=== PATIENT | male | born 1990 | race Caucasian/White ===

== ENCOUNTER 2018-09-06 12:21 | Emergency (ER) | payer BC, SELFPAY ==
[2018-09-06 12:23] VITALS: BP 152/88; PULSE 64; RESP 12; TEMP 36.9; O2SAT 99; BMI 33.7
--- NOTE | 2018-09-06 12:26 | NURSING ---
NO OLD EKG TO OBTAIN.
--- NOTE | 2018-09-06 12:58 | RAD_ITS ---
STUDY: X-RAY CHEST REASON FOR EXAM: Male, 27 years old. Chest pain TECHNIQUE: AP COMPARISON: None. FINDINGS: EKG leads project over the chest. Fusion hardware of the lower cervical spine partially visualized. The lungs are clear and expanded. There is no demonstrated pleural abnormality. Normal size heart. Normal mediastinum and kevin. Normal visualized pulmonary arteries. Normal visualized aortic arch and descending thoracic aorta. Normal visualized thoracic spine. Normal visualized ribs, clavicles, and shoulders. There is no demonstrated abnormality of the visualized soft tissue structures of the upper abdomen. RAD/Chest 1 View (Portable) IMPRESSION: Nonacute x-ray examination of the chest. Electronically Signed: Alexi Barreto MD at 13:21 EDT , Service support ,
--- NOTE | 2018-09-06 12:58 | EKG12_ITS ---
Test Reason : CP Blood Pressure : / mmHG Vent. Rate : 067 BPM Atrial Rate : 067 BPM P-R Int : 158 ms QRS Dur : 090 ms QT Int : 432 ms P-R-T Axes : 049 007 004 degrees QTc Int : 456 ms Normal sinus rhythm Minimal voltage criteria for LVH, may be normal variant Borderline ECG Confirmed by ANATOLIY HERNÁNDEZ, SAMMIE ([id number]), graphics editor SHAHEED MIX ([id number] on 09/08/2018 11:42:51 AM Referred By: LILIAN/GIULIANO Confirmed By:SAMMIE COPE MD
--- NOTE | 2018-09-06 13:02 | NURSING ---
NO OLD EKGS
[2018-09-06] MEDS: Aspirin 81 MG TAB.CHEW 324 MG PO (13:06)
[2018-09-06] MEDS: Mag Hydrox/Al Hydrox/Simeth 30 ML UDC PO (13:06)
[2018-09-06 13:08] LABS: Absolute Lymphocyte Count 2.89 X10^3/ul (0.83-4.51); Absolute Neutrophil Count 2.9 X10^3/uL (2.0-7.7); Basophil# 0.02 X10^3/uL; Basophil% 0.3 % (0-1); Eosinophil# 0.15 X10^3/uL; Eosinophils% 2.3 % (0-5); Hematocrit 38.5 % (40-54); Hemoglobin 13.2 g/dl (13.0-16.5); Lymphocyte # 2.89 X10^3/ul (4.0); Lymphocyte % 43.9 % (19-41); Mean Corp Hgb Conc 34.3 g/gl (32-36); Mean Corpuscular Hgb 28.6 pg (27.0-32.0); Mean Corpuscular Volume 83.3 fL (80-94); Mean Platelet Vol. 9.3 fl (6.2-12.0); Monocyte# 0.64 X10^3/uL; Monocyte% 9.7 % (0-10); Neutrophil # 2.88 X10^3/uL (2.7-7.7); Neutrophil % 43.8 % (47-70); POSITIVE COUNT NO; POSITIVE DIFFERENTIAL NO; POSITIVE MORPHOLOGY NO; Platelet Count 231 K/mm3 (150-450); RBC Distribution Width CV 12.8 % (11.6-14.6); RBC Distribution Width SD 38.6 fl (35.1-43.9); Red Blood Count 4.62 M/mm3 (4.6-6.2); White Blood Count 6.6 K/mm3 (4.4-11.0)
--- NOTE | 2018-09-06 13:10 | ED.DCSUM_ITS ---
- ER Visit Summary Date of Service: 09/06/18 Chief Complaint: Chest pain History of Present Illness: The patient is a 27 M presenting with chest pain. Patient states this started 2 to 3 hours ago and has been continuous. He has been having intermittent chest pain for the past week or so. He denies shortn ess of breath. Denies nausea or vomiting. He has history of cervical spinal stenosis. He had neck fusion x2. He denies neck pain. He states his last orthopedic surgeon felt that his chest wall pain was secondary to his cervical spinal stenosis. He recently moved to the area and does not have a physician. Denies PE/DVT risk factors. He is not a smoker. Physical Examination: Vitals are stable. Patient is afebrile. Alert no acute distress. HEENT exam is unremarkable. Neck is supple. Lungs are clear and equal bilaterally. Chest wall tenderness to palpation with no crepitus Heart is regular rate and rhythm. Abdomen is soft nontender nondistended. Extremities are unremarkable. Skin is warm and dry. No focal neurologic deficit. Remainder of exam is unremarkable. Emergency Department Course and Treatment: Patient was given aspirin on arrival. He was given a GI cocktail. EKG is sinus rate is 67 with no acute ischemic changes. CBC, chemistries unremarkable. Troponin is negative. D-dimer negative. Chest x-ray shows no acute process. He continues to have pain and was given Toradol IV. Repeat troponin is negative. On reevaluation, patient is resting comfortably. He is given Dr. Nunez risk consulting treasury director for no doc for follow-up. Advised return to ED if worsening complaints. Disposition: Discharge home Impression: Atypical chest pain This note was generated with [employer] dictation software. It may contain incorrect words, spelling, and punctuation that were not noted in review of the chart prior to signing ED Disposition - Plan for ED Patient: Instructions: ED Chest Pain Atypical Unkn Cause Referrals: Ritchie Nunez III, MD [STAFF PHYSICIAN] -
[2018-09-06 13:17] LABS: D-Dimer Quantitative (DVT/PE) < 0.27 FEU/ug/m (0.27-0.49)
[2018-09-06 13:18] LABS: Anion Gap 7 (5-15); BUN 13 mg/dL (7-18); BUN/Creat Ratio 14.6 RATIO (10-20); Calcium,Total 8.9 mg/dL (8.5-10.1); Chloride 105 mmol/L (98-107); Creatinine, Serum 0.89 mg/dL (0.70-1.30); EST Glomerular Filtration Rate 107 mL/min (>60); Est Glom Filt Rate - Afr Amer 130 mL/min (>60); Estimated Creatinine Clearance 146.37 ml/min; Glucose 91 mg/dL (74-106); Potassium 4.2 mmol/L (3.5-5.1); Sodium Level 143 mmol/L (136-145)
[2018-09-06 13:41] VITALS: BP 129/95; PULSE 69; RESP 11; O2SAT 94
[2018-09-06 14:24] VITALS: BP 127/90; PULSE 66; RESP 14; O2SAT 96
[2018-09-06] MEDS: Ketorolac 30 MG/ML Syringe IV (14:24)
[2018-09-06 15:02] VITALS: BP 129/91; PULSE 66; RESP 12; O2SAT 98
--- NOTE | 2018-09-06 16:15 | ED.DEP ---
ED Disposition - Plan for ED Patient: Instructions: ED Chest Pain Atypical Unkn Cause Referrals: Ritchie Nunez III, MD [STAFF PHYSICIAN] -
[2018-09-06 16:25] VITALS: BP 131/78; PULSE 76; RESP 16; O2SAT 98
== END 2018-09-06 16:26 | disposition home or self-care (01) ==
PROVIDERS: Emergency Provider Emergency Medicine
DX: R07.89 Other chest pain (principal)
CPT/HCPCS: 71045; 80048; 84484; 85025; 85379; 93005; 96374; 99285; A4216

== ENCOUNTER → 2018-11-05 09:11 | Outpatient (CLI) | payer SELFPAY | DX: Z52.3 Bone marrow donor (principal) | CPT/HCPCS: 36415 ==

== ENCOUNTER 2020-06-11 13:17 | Observation (INO) | payer OTHER, SELFPAY ==
[2020-06-11] VITALS (13 sets, daily range): BP systolic 115–186; BP diastolic 74–96; PULSE 50–111; RESP 12–20; TEMP 36.6–37.1; O2SAT 94–100; BMI 26.4; BMI 33.0; BMI 33.1
--- NOTE | 2020-06-11 13:36 | RAD_ITS ---
STUDY: X-RAY CHEST REASON FOR EXAM: Male, 29 years old. Increased heart rate, chest pain today TECHNIQUE: Single AP portable view of the chest. COMPARISON: None. FINDINGS: There are monitoring devices. The lungs are clear and expanded. There is no demonstrated pleural abnormality. Normal size heart. Normal mediastinum and kevin. Normal visualized pulmonary arteries. Normal visualized aortic arch and descending thoracic aorta. Normal visualized thoracic spine. There is postoperative change of the cervical spine. Normal visualized ribs, clavicles, and shoulders. There is no demonstrated abnormality of the visualized soft tissue structures of the upper abdomen. RAD/Chest 1 View (Portable) IMPRESSION: Normal x-ray examination of the chest. Electronically Signed: Joe Polanco MD at 14:16 EST , Service support ,
--- NOTE | 2020-06-11 13:36 | EKG12_ITS ---
Test Reason : CP Blood Pressure : / mmHG Vent. Rate : 107 BPM Atrial Rate : 107 BPM P-R Int : 214 ms QRS Dur : 098 ms QT Int : 328 ms P-R-T Axes : 057 008 008 degrees QTc Int : 437 ms Sinus tachycardia with 1st degree A-V block Left ventricular hypertrophy with repolarization abnormality Abnormal ECG Confirmed by ANATOLIY HERNÁNDEZ, SAMMIE ([id number]), city editor SUSY MITCHELL ([id number]) on 06/14/2020 12:20:49 PM Referred By: AARON Confirmed By:SAMMIE COPE MD
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
[2020-06-11 13:43] LABS: Absolute Lymphocyte Count 3.74 X10^3/uL (0.83-4.51); Basophil# 0.03 X10^3/uL; Basophil% 0.3 % (0-1); Eosinophils% 3.1 % (0-5); Hematocrit 41.5 % (40-54); Lymphocyte # 3.74 X10^3/ul (4.0); Lymphocyte % 38.3 % (19-41); Mean Corp Hgb Conc 33.7 g/dL (32-36); Mean Corpuscular Hgb 28.1 pg (27.0-32.0); Mean Corpuscular Volume 83.3 fL (80-94); Mean Platelet Vol. 9.1 fl (6.2-12.0); Monocyte# 0.64 X10^3/uL; Monocyte% 6.6 % (0-10); NRBC Flagged by Analyzer 0 % (0-5); Neutrophil # 5.03 X10^3/uL (2.7-7.7); Neutrophil % 51.4 % (47-70); Platelet Count 287 K/mm3 (150-450); RBC Distribution Width CV 12.7 % (11.6-14.6); RBC Distribution Width SD 38.3 fl (35.1-43.9); Red Blood Count 4.98 M/mm3 (4.6-6.2); White Blood Count 9.8 K/mm3 (4.4-11.0)
[2020-06-11] MEDS: 0.9% Normal Saline 1,000 ML 150 ML IV (13:50)
[2020-06-11] MEDS: Aspirin 81 MG TAB.CHEW 324 MG PO (13:52)
[2020-06-11 13:56] LABS: Anion Gap 9 (5-15); BUN 11 mg/dL (7-18); BUN/Creat Ratio 10.5 RATIO (10-20); Chloride 102 mmol/L (98-107); Creatinine, Serum 1.05 mg/dL (0.70-1.30); EST Glomerular Filtration Rate 87 mL/min (>60); Est Glom Filt Rate - Afr Amer 106 mL/min (>60); Estimated Creatinine Clearance 121.83 ml/min; Glucose 188 mg/dL (74-106); Potassium 2.9 mmol/L (3.5-5.1); Sodium Level 136 mmol/L (136-145)
[2020-06-11] MEDS: Nitroglycerin SL (ED/IMG/CATH) 0.4 MG TABLET SUBLINGUAL (13:56)
[2020-06-11 14:19] LABS: D-Dimer Quantitative (DVT/PE) 0.58 FEU/ug/m (0.27-0.49)
--- NOTE | 2020-06-11 14:22 | CT_ITS ---
STUDY: CTA CHEST REASON FOR EXAM: Male, 29 years old. Chest pain RADIATION DOSAGE (If Supplied By Facility): CTDIvol = ( 14.78 ) mGy, DLP = ( 553.45 ) mGycm TECHNIQUE: The examination was performed with the intravenous administration of 100mL Isovue-370. Post-processing of the angiographic images was performed, with multiplanar reformation and 3D reconstruction. Individualized dose optimization techniques were used for this CT. COMPARISON: Chest x-ray FINDINGS: Normal enhancement of the main pulmonary artery and right and left pulmonary arteries. Normal enhancement of the bilateral peripheral pulmonary arteries. There is no demonstrated pulmonary embolism. Normal thoracic aorta and visualized great vessels. There is no demonstrated aortic dissection. Normal heart and pericardium. Normal mediastinum. Normal hilar regions. Normal visualized trachea and bronchi. The lungs are well expanded. Normal pulmonary parenchyma. Normal pleura. Normal chest wall structures. There are degenerative changes of thoracic spine. There is a solitary gallstone. CT/CTA Chest W/WO Contrast IMPRESSION: CTA chest examination, without a demonstrated pulmonary embolism or arterial dissection. There are no focal infiltrate or edema. Electronically Signed: Joe Polanco MD at 15:28 EST , Service support ,
[2020-06-11] MEDS: Nitroglycerin Oint 1 INCH PACKET TD ×2 (14:45→20:43)
--- NOTE | 2020-06-11 16:24 | PCM.HP.STD ---
History of Present Illness The patient is a 29 year old M [] Past Medical History Allergies No Known Allergies Allergy (Verified 06/11/20 13:20) Home Medications: Ambulatory Orders Medication Instructions Recorded Hydrochlorothiazide 12.5 mg PO DAILY 06/11/20 Methadone HCl [Methadose] 150 mg PO DAILY 06/11/20 Smoking Status: Current every day smoker Tobacco Use: Vapor - Physical Exam Vitals/I&O's: Vital Signs Temp Pulse Resp BP Pulse Ox 98.6 F 76 14 120/87 H 94 06/11/20 15:31 06/11/20 15:31 06/11/20 15:31 06/11/20 15:31 06/11/20 15:31 Oxygen Delivery Method Room Air Weight: 95.8 kg Body Mass Index (BMI) 26.4 Laboratory Results 06/11/20 13:22: WBC 9.8, RBC 4.98, Hgb 14.0, Hct 41.5, MCV 83.3, MCH 28.1, MCHC 33.7, RDW Std Deviation 38.3, RDW Coeff of Lupillo 12.7, Plt Count 287, MPV 9.1, Immature Gran % (Auto) 0.300, Neut % (Auto) 51.4, Lymph % (Auto) 38.3, [place] % (Auto) 6.6, Eos % (Auto) 3.1, Baso % (Auto) 0.3, Absolute Neuts (auto) 5.0, Absolute Lymphs (auto) 3.74, Nucleated RBC % 0 06/11/20 13:22: Sodium 136, Potassium 2.9 L, Chloride 102, Carbon Dioxide 25.0, Anion Gap 9, BUN 11, Creatinine 1.05, Estim Creat Clear Calc 121.83, Est GFR (MDRD) Af Amer 106, Est GFR (MDRD) Non-Af 87, BUN/Creatinine Ratio 10.5, Glucose 188 H, Calcium 9.0, Troponin I < 0.015 06/11/20 13:22: D-Dimer Quant (PE/DVT) 0.58 H* Current Medications Sodium Chloride () 1,000 mls @ 150 mls/hr IV .Q6H40M ALFREDO Last Admin: 06/11/20 13:50 Dose: 150 mls/hr Documented by: Nitroglycerin (Nitroglycerin Sl (Ed/Img/Cath) 0.4 Mg Tablet) 0.4 mg SUBLINGUAL Q5M PRN PRN Reason: Chest pain Last Admin: 06/11/20 13:56 Dose: 0.4 mg Documented by: OBSV E&M: [id number] Initial observation care L3
--- NOTE | 2020-06-11 17:04 | EKG12_ITS ---
Test Reason : CP ADMIT Blood Pressure : / mmHG Vent. Rate : 062 BPM Atrial Rate : 062 BPM P-R Int : 156 ms QRS Dur : 088 ms QT Int : 464 ms P-R-T Axes : 013 005 -02 degrees QTc Int : 470 ms Normal sinus rhythm Nonspecific ST abnormality Abnormal ECG Confirmed by ANATOLIY HERNÁNDEZ, SAMMIE ([id number]), website/blog editor SUSY MITCHELL ([id number]) on 06/14/2020 12:50:18 PM Referred By: Confirmed By:SAMMIE COPE MD
--- NOTE | 2020-06-11 17:21 | STEWCON_ITS ---
Reason For Study: Chest Pain Stress Results Protocol: Jacinto Protocol WITH DEFINITY Maximum Predicted HR: 189 bpm Target HR: 161 bpm % Maximum Predicted HR: 88 % Heart Stage Duration Rate BP Comment (mm:ss) (bpm) Baseline 72 154/965/10 Chest Pain; 5 ML Diluted Definity Jacinto Protocol Stage I 3:00 97 170/925/10 Chest Pain Jacinto Protocol Stage II 3:00 122 174/885/10 Chest Pain Jacinto Protocol Stage III 3:00 146 180/846/10 Chest Pain Jacinto Protocol Stage IV 1:00 166 / 6/10 Chest Pain Very Sharp Chest Pain When Laying Down; Worsened With Recovery 96 136/90Ectopy; Chest Pain Back to Baseline Prior to End Of Exam Stress Duration: 10:00 mm:ss Maximum Stress HR: 166 bpm METS: 13 Baseline Echocardiogram Findings Stress Echo Wall motion Data Resting WM Intermediate WM Stress WM Interpretation Summary Exercise stress echo. 29-year-old man with a history of hypertension and chest pain. Stress protocol: Resting EKG demonstrates normal sinus rhythm with a rate of 81 bpm normal intervals are noted resting blood pressure is 154/96 mmHg. The patient exercised according to the regular Jacinto protocol for total duration of 10 minutes. Patient completed 1 minute into stage IV of the Jacinto protocol. The maximum heart rate attained was 169 bpm which was 89% of max impacted heart rate the maximum workload was 13.4 metabolic equivalents. At rest there were no ST or T wave changes noted to suggest ischemia. At peak exercise upsloping EKG changes were noted in the inferior lateral leads not suggestive of ischemia. During recovery frequent premature ventricular complexes were noted. The patient complained of chest discomfort at the beginning of the test all the way through the end which he said was sharp and atypical. The peak blood pressure was 180/84 mmHg which was a good blood pressure response to exercise. Stress protocol: Resting echocardiogram performed with Definity enhancement demonstrated mild global left ventricular systolic dysfunction with an estimated ejection fraction of 45%. At peak exercise there was thickening of all garner and reduction in low ventricular cavity size peaking at 60 to 65%. No wall motion abnormalities were noted to suggest ischemia. Conclusion: Exercise stress echo with no EKG changes suggestive of ischemia at a high workload. Good functional capacity. Atypical chest pain noted. Baseline mild cardiomyopathy noted. Ordering Physician: Mary Rolon Referring Physician: Ryan Romo Performed By: Emili Chacon, KHUSHBU, RVT
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
[2020-06-11 17:33] LABS: Magnesium 2.2 mg/dL (1.6-2.6)
[2020-06-11] MEDS: Potassium Chloride 10mEq/100mL 10 MEQ/100 ML IV.SOLN. 100 MEQ IV BOLUS ×4 (18:24→21:51)
[2020-06-11] MEDS: Acetaminophen 325 MG Tablet 650 MG PO (21:23)
[2020-06-12] VITALS (11 sets, daily range): BP systolic 117–154; BP diastolic 70–81; PULSE 55–84; RESP 16–18; TEMP 36.7–36.8; O2SAT 97–100
[2020-06-12] MEDS: 0.9% Saline Lock 10 ML Syringe IV ×2 (06:35→20:52)
[2020-06-12 06:56] LABS: Absolute Lymphocyte Count 2.99 X10^3/uL (0.83-4.51); Absolute Neutrophil Count 3.6 X10^3/uL (2.0-7.7); Basophil# 0.02 X10^3/uL; Basophil% 0.3 % (0-1); Eosinophil# 0.23 X10^3/uL; Eosinophils% 3.1 % (0-5); Hematocrit 40.1 % (40-54); Hemoglobin 12.8 g/dL (13.0-16.5); Lymphocyte # 2.99 X10^3/ul (4.0); Lymphocyte % 40.5 % (19-41); Mean Corp Hgb Conc 31.9 g/dL (32-36); Mean Corpuscular Volume 84.6 fL (80-94); Mean Platelet Vol. 9.2 fl (6.2-12.0); Monocyte# 0.54 X10^3/uL; Monocyte% 7.3 % (0-10); NRBC Flagged by Analyzer 0 % (0-5); Neutrophil # 3.57 X10^3/uL (2.7-7.7); Neutrophil % 48.4 % (47-70); Platelet Count 240 K/mm3 (150-450); RBC Distribution Width CV 12.7 % (11.6-14.6); RBC Distribution Width SD 39.4 fl (35.1-43.9); Red Blood Count 4.74 M/mm3 (4.6-6.2); White Blood Count 7.4 K/mm3 (4.4-11.0)
[2020-06-12 07:25] LABS: ALB/GLOB Ratio 0.9 RATIO (0.9-2.4); AST(SGOT) 25 U/L (15-37); Alanine Aminotransfer ALT/SGPT 47 U/L (16-61); Albumin, Serum 3.6 g/dL (3.2-5.0); Alkaline Phosphatase 72 U/L (45-117); Anion Gap 3 (5-15); BUN 12 mg/dL (7-18); BUN/Creat Ratio 13.2 RATIO (10-20); Calcium,Total 9.1 mg/dL (8.5-10.1); Chloride 105 mmol/L (98-107); Creatinine, Serum 0.91 mg/dL (0.70-1.30); EST Glomerular Filtration Rate 104 mL/min (>60); Est Glom Filt Rate - Afr Amer 125 mL/min (>60); Estimated Creatinine Clearance 140.58 ml/min; Glucose 89 mg/dL (74-106); Potassium 3.9 mmol/L (3.5-5.1); Protein, Total 7.6 g/dL (6.4-8.2); Sodium Level 139 mmol/L (136-145)
--- NOTE | 2020-06-12 09:13 | PN_ITS ---
<Ector Garrido - Last Filed: 06/12/20 10:15> Patient Problems: Active and Suspected Problems Chest pain at rest (Acute) Hypokalemia (Acute) Elevated d-dimer (Acute) Reason for Visit: Unspecified chest pain/ACS rule out Subjective: Patient laying comfortably in room, is alert and oriented x3. Patient is currently not experiencing any chest pain or shortness of breath. Around 8:30 PM last night patient did experience a return of chest pain. Patient's nitroglycerin patch was increased to every 6 hours, which did resolve the patient's pain. Patient has refused the last 2 scheduled because he does not feel like he currently needs the patch. Objective: Clinical Impression(s) from Imaging Studies Chest X-Ray 06/11/20 13:36 IMPRESSION: Normal x-ray examination of the chest. Electronically Signed: Joe Polanco MD at 14:16 EST , Service support , Chest CTA 06/11/20 14:22 IMPRESSION: CTA chest examination, without a demonstrated pulmonary embolism or arterial dissection. There are no focal infiltrate or edema. Electronically Signed: Joe Polanco MD at 15:28 EST , Service support , Vitals/I&O's: Vital Signs Temp Pulse Resp BP Pulse Ox 98.0 F 71 16 154/80 H 98 06/12/20 08:38 06/12/20 08:38 06/12/20 08:38 06/12/20 08:38 06/12/20 08:38 Oxygen Delivery Method Room Air Weight: 264 lb 5.348 oz Body Mass Index (BMI) 33.0 Intake and Output for Last 24 Hours 06/10/20 06/11/20 06/12/20 23:59 23:59 23:59 Intake Total 1010 / 1010 Balance 1010 / 1010 General: Alert, Oriented x3, Cooperative HEENT: Atraumatic, PERRLA, EOMI, Normocephalic Neck: Supple, No JVD, Negative Carotid Bruits Lungs: Clear to auscultation, Normal air movement Cardiovascular: Regular rate, No murmurs Abdomen: Bowel Sounds Present, Soft, Non Tender Extremities: No edema, Capillary Refill Less than 3 Seconds Skin: No rashes, No breakdown Musculoskeletal: No Tenderness to Palpation of Joints or Extremities Neurological: Cranial nerves II-XII grossly intact Psych/Mental Status: Normal Affect, Appropriate Laboratory Results 06/11/20 13:22: WBC 9.8, RBC 4.98, Hgb 14.0, Hct 41.5, MCV 83.3, MCH 28.1, MCHC 33.7, RDW Std Deviation 38.3, RDW Coeff of Lupillo 12.7, Plt Count 287, MPV 9.1, Immature Gran % (Auto) 0.300, Neut % (Auto) 51.4, Lymph % (Auto) 38.3, [place] % (Auto) 6.6, Eos % (Auto) 3.1, Baso % (Auto) 0.3, Absolute Neuts (auto) 5.0, Absolute Lymphs (auto) 3.74, Nucleated RBC % 0 06/11/20 13:22: Sodium 136, Potassium 2.9 L, Chloride 102, Carbon Dioxide 25.0, Anion Gap 9, BUN 11, Creatinine 1.05, Estim Creat Clear Calc 121.83, Est GFR (MDRD) Af Amer 106, Est GFR (MDRD) Non-Af 87, BUN/Creatinine Ratio 10.5, Glucose 188 H, Calcium 9.0, Troponin I < 0.015 06/11/20 13:22: D-Dimer Quant (PE/DVT) 0.58 H* 06/11/20 17:13: Magnesium 2.2 06/11/20 17:13: Troponin I < 0.015 06/11/20 19:38: Troponin I < 0.015 06/12/20 06:10: WBC 7.4, RBC 4.74, Hgb 12.8 L, Hct 40.1, MCV 84.6, MCH 27.0, MCHC 31.9 L D, RDW Std Deviation 39.4, RDW Coeff of [place] 12.7, Plt Count 240, MPV 9.2, Immature Gran % (Auto) 0.400, Neut % (Auto) 48.4, Lymph % (Auto) 40.5, [place] % (Auto) 7.3, Eos % (Auto) 3.1, Baso % (Auto) 0.3, Absolute Neuts (auto) 3.6, Absolute Lymphs (auto) 2.99, Nucleated RBC % 0 06/12/20 06:10: Sodium 139, Potassium 3.9, Chloride 105, Carbon Dioxide 31.0, Anion Gap 3 L, BUN 12, Creatinine 0.91, Estim Creat Clear Calc 140.58, Est GFR (MDRD) Af Amer 125, Est GFR (MDRD) Non-Af 104, BUN/Creatinine Ratio 13.2, Glucose 89, Calcium 9.1, Total Bilirubin 0.70, AST 25, ALT 47, Alkaline Phosphatase 72, Total Protein 7.6, Albumin 3.6, Globulin 4.0, Albumin/Globulin Ratio 0.9 Current Medications Acetaminophen (Acetaminophen 325 Mg Tablet) 650 mg PO Q6H PRN PRN PRN Reason: Pain 1-10 or Fever Last Admin: 06/11/20 21:23 Dose: 650 mg Documented by: Hydralazine HCl (Hydralazine 20 Mg/Ml Vial) 5 mg IV Q6H PRN PRN PRN Reason: BLOOD PRESSURE Morphine Sulfate (Morphine 2 Mg/Ml Syringe) 2 mg IV Q3H PRN PRN PRN Reason: PAIN 6-10 Nitroglycerin (Nitroglycerin Oint 1 Inch Packet) 1 inch TD Q6 [facility] Last Admin: 06/12/20 06:36 Dose: Not Given Documented by: Non-Formulary Medication (Methadone Hcl [Methadose]) 150 mg PO DAILY [facility] Ondansetron HCl (Ondansetron 4 Mg/2 Ml Vial) 4 mg IV Q8H PRN PRN PRN Reason: NAUSEA/VOMITING Sodium Chloride (0.9% Saline Lock 10 Ml Syringe) 10 - 40 ml IV UD PRN PRN Reason: SALINE FLUSH Last Admin: 06/12/20 06:35 Dose: 10 ml Documented by: STROKE Vital Signs/Narrative: Vital Signs Temp Pulse Resp BP Pulse Ox 06/12/20 08:38 98.0 F 71 16 154/80 H 98 06/12/20 07:00 55 L Medical Necessity - Tobacco Use Smoking Status: Former smoker Tobacco Use: Non-smoker, Vapor Assessment/Plan All Active Problems Chest pain at rest (Acute) Hypokalemia (Acute) Elevated d-dimer (Acute) Chest pain at rest (Acute) Hypokalemia (Acute) Elevated d-dimer (Acute) 1) Unspecified chest pain/ACS rule out Assessment - Telemonitoring; Sinus rhythm - Patient did experience a return of chest pain around 8:30 PM on 06/11/2020 - Last night's chest pain resolved with increase of Nitropatch - No elevation in Troponin over cycle Plan - Admitted till stress test can be completed on 06/13/2020 - Nitroglycerin patch schedule increased to Q6H 2) Elevated D-Dimer Assessment - No SOB, Tachycardia, or sputum - 0.58 FEU/ug/M - CT-A demonstrated no evidence of PE - CXR no demonstrated pleural abnormality Plan - Continue to consider cardiac causes of patients chest pain 3) Hypokalemia Assessment - Potassium 3.9 mmol/L - Magnesium 2.2 mg/dL Plan -Resolved -Continue to hold hydrochlorothiazide -We will continue to monitor CMP and BMP Patient seen by Ector Garrido PA-C, under the supervision of Dr. Rolon. <Mary Rolon - Last Filed: 06/12/20 14:03> Vitals/I&O's: Vital Signs Temp Pulse Resp BP Pulse Ox 98.0 F 73 16 129/78 H 97 06/12/20 10:58 06/12/20 10:58 06/12/20 10:58 06/12/20 11:03 06/12/20 10:58 Oxygen Delivery Method Room Air Weight: 119.9 kg Body Mass Index (BMI) 33.0 Intake and Output for Last 24 Hours 06/10/20 06/11/20 06/12/20 23:59 23:59 23:59 Intake Total 1010 / 1010 Balance 1010 / 1010 Laboratory Results 06/11/20 13:22: D-Dimer Quant (PE/DVT) 0.58 H* 06/11/20 17:13: Magnesium 2.2 06/11/20 17:13: Troponin I < 0.015 06/11/20 19:38: Troponin I < 0.015 06/12/20 06:10: WBC 7.4, RBC 4.74, Hgb 12.8 L, Hct 40.1, MCV 84.6, MCH 27.0, MCHC 31.9 L D, RDW Std Deviation 39.4, RDW Coeff of [place]up[place] 12.7, Plt Count 240, MPV 9.2, Immature Gran % (Auto) 0.400, Neut % (Auto) 48.4, Lymph % (Auto) 40.5, [place] % (Auto) 7.3, Eos % (Auto) 3.1, Baso % (Auto) 0.3, Absolute Neuts (auto) 3.6, Absolute Lymphs (auto) 2.99, Nucleated RBC % 0 06/12/20 06:10: Sodium 139, Potassium 3.9, Chloride 105, Carbon Dioxide 31.0, Anion Gap 3 L, BUN 12, Creatinine 0.91, Estim Creat Clear Calc 140.58, Est GFR (MDRD) Af Amer 125, Est GFR (MDRD) Non-Af 104, BUN/Creatinine Ratio 13.2, Glucose 89, Calcium 9.1, Total Bilirubin 0.70, AST 25, ALT 47, Alkaline Phosphatase 72, Total Protein 7.6, Albumin 3.6, Globulin 4.0, Albumin/Globulin Ratio 0.9 Current Medications Acetaminophen (Acetaminophen 325 Mg Tablet) 650 mg PO Q6H PRN PRN PRN Reason: Pain 1-10 or Fever Last Admin: 06/11/20 21:23 Dose: 650 mg Documented by: Hydralazine HCl (Hydralazine 20 Mg/Ml Vial) 5 mg IV Q6H PRN PRN PRN Reason: BLOOD PRESSURE Methadone HCl (Methadone Hcl 10 Mg/Ml Oral.Conc) 150 mg PO DAILY [facility] Last Admin: 06/12/20 11:02 Dose: 150 mg Documented by: Morphine Sulfate (Morphine 2 Mg/Ml Syringe) 2 mg IV Q3H PRN PRN PRN Reason: PAIN 6-10 Nitroglycerin (Nitroglycerin Oint 1 Inch Packet) 1 inch TD Q6 [facility] Last Admin: 06/12/20 11:03 Dose: 1 inch Documented by: Ondansetron HCl (Ondansetron 4 Mg/2 Ml Vial) 4 mg IV Q8H PRN PRN PRN Reason: NAUSEA/VOMITING Sodium Chloride (0.9% Saline Lock 10 Ml Syringe) 10 - 40 ml IV UD PRN PRN Reason: SALINE FLUSH Last Admin: 06/12/20 06:35 Dose: 10 ml Documented by: STROKE Vital Signs/Narrative: Vital Signs Temp Pulse Resp BP Pulse Ox 06/12/20 11:03 129/78 H 06/12/20 10:58 98.0 F 73 16 129/78 H 97 Assessment/Plan This patient was seen in conjunction with SHAHEEN Hutton. I have independently interviewed and examined the patient and reviewed pertinent historical, laboratory, and other data. Please refer to SHAHEEN Hutton's note for his patient's presentation, findings, and recommendations. I have reviewed and his note and concur with his documentation Patient was seen and examined. He had an episode of chest pain, improved with nitropaste. No more chest pain at the time of exam. Physical Exam: Gen: Comfortable, not pale, not jaundiced CVS:HS I +II, regular, no murmurs RESP: Diminished at lung bases GI: BS present and normal, soft, nontender, no palpable organs EXT:No edema ASSESSMENT: 1. Chest pain, typical, concerning for acute coronary syndrome 2. Hypokalemia, resolved 3. Hypertension 4. Elevated D-dimer Plan: Continue to hold hydrochlorothiazide, Stress echo in am OBSV E&M: [id number] Subsequent observation care L3
[2020-06-12] MEDS: METHADONE HCL 10 MG/ML 150 MG PO (11:02)
[2020-06-12] MEDS: Nitroglycerin Oint 1 INCH PACKET TD (11:03)
[2020-06-13 03:22] VITALS: PULSE 60
[2020-06-13 03:30] VITALS: BP 104/63; PULSE 66; RESP 16; TEMP 36.7; O2SAT 98
[2020-06-13 07:48] VITALS: PULSE 61
[2020-06-13 09:30] VITALS: BP 140/91; PULSE 84; RESP 16; TEMP 36.6; O2SAT 96
--- NOTE | 2020-06-13 09:39 | DCINST_ITS ---
- Discharge Diagnoses Current Active Problems: Current Active and Chronic Problems Chest pain at rest (Acute) Hypokalemia (Acute) Elevated d-dimer (Acute) Reason(s) for Visit for Discharge Instructions: Unspecified chest pain/ACS rule out You will use the following diet at home:: No restrictions Your food should be the consistency of: Regular Your liquids should be the consistency of: Regular/Thin Discharge Activity: Return to Normal Activity Return to work on:: 06/14/20 Instructions: ED Pain, Acute, Uncertain Cause Additional Instructions: Discharge pending results of stress echocardiogram Pending Tests on Discharge: Stress Echocardiogram Allergies/Adverse Reactions: Allergies No Known Allergies Allergy (Verified 06/11/20 13:20) Medications to take at Discharge Hydrochlorothiazide 12.5 mg PO DAILY 06/11/20 Methadone HCl [Methadose] 150 mg PO DAILY 06/11/20 Primary Care Physician: Care Physician,No Primary [NON-STAFF] - Test Results: Test results from this visit will be discussed in further detail at your follow- up appointment, if applicable.
--- NOTE | 2020-06-13 10:09 | PHA.DC.MR ---
Pharmacy Service has performed discharge medication reconciliation for this patient. No new medications at time of discharge review. Medications reviewed are from previously reported home medications. Home Medications Hydrochlorothiazide 12.5 mg PO DAILY 06/11/20 Methadone HCl [Methadose] 150 mg PO DAILY 06/11/20 The patient's discharge medication list was reviewed for discrepancies and discrepancies were resolved.
--- NOTE | 2020-06-13 13:02 | CHAPLAIN ---
Type of Pastoral Visit _x__ Initial Visit ___ Follow-up Visit ___ On-call Visit ___ General Patient Visit ___ Spiritual Assessment ___ Family Conference ___ Bereavement ___ Rapid Response ___ Code Blue ___ Other (describe below) Pastoral Care Referral From _x__ Patient ___ Family ___ Nurse ___ Physician ___ Protection Analyst ___ Teaching Associate ___ Other (describe below) Sacrament/Intervention _x__ Active listening ___ Anointing ___ Oriental Orthodox ___ Bereavement ___ Communion _x__ Annalise exploration ___ _x__ Life review _x__ Prayer ___ Reconciliation ___ Sacrament of Sick ___ Supportive presence ___ Wedding ___ Other (describe below) Pastoral Comments
--- NOTE | 2020-06-13 13:48 | DS.PCM_ITS ---
<Ector Garrido - Last Filed: 06/13/20 13:48> Discharge Date and Diagnosis - Problem List Patient Problems: Active and Suspected Problems Chest pain at rest (Acute) Hypokalemia (Acute) Elevated d-dimer (Acute) Date of Admission: 06/11/20 Date of Discharge: 06/13/20 - Primary Discharge Diagnosis Acute Problems: Active Problems Chest pain at rest (Acute) Hypokalemia (Acute) Elevated d-dimer (Acute) Hospital Course and Treatment Imaging Results: Clinical Impression(s) from Imaging Studies Chest X-Ray 06/11/20 13:36 IMPRESSION: Normal x-ray examination of the chest. Electronically Signed: Joe Polanco MD at 14:16 EST , Service support , Chest CTA 06/11/20 14:22 IMPRESSION: CTA chest examination, without a demonstrated pulmonary embolism or arterial dissection. There are no focal infiltrate or edema. Electronically Signed: Joe Polanco MD at 15:28 EST , Service support , Operations: None Procedures: 2-D Echocardiogram, Nuclear stress test Summary of Care Provided: Patient is a 29-year-old male who was admitted to the hospital on 06/11/2020 with a chief complaint of chest pain. Patient work-up pertinent to unspecified chest pain/ACS rule out. D-dimer was elevated on admission, but CT-A demonstrated no evidence of PE or aortic dissection. Hydrochlorothiazide held due to hypokalemia at admission. No elevation in troponins over course of admission. Vital signs stable throughout admission. Patient did continue to have recurring chest pain over course of stay. Increased frequency of Nitropatch given for chest pain. Stress echocardiogram unremarkable. 1) Unspecified chest pain/ACS rule out Assessment - Telemonitoring; Sinus rhythm - No elevation in Troponin over cycle - Stress echo unremarkable - Patient continued to have chest pain over course of stay, refused repeat EKGs and Nitropatch. Says this is a normal everyday occurrence. Plan - Discharge today -Recommend follow-up with primary care provider within the next 2 weeks 2) Elevated D-Dimer Assessment - No SOB, Tachycardia, or sputum - 0.58 FEU/ug/M - CT-A demonstrated no evidence of PE - CXR no demonstrated pleural abnormality Plan - Resolved 3) Hypokalemia Assessment - Potassium 3.9 mmol/L - Magnesium 2.2 mg/dL Plan - Resolved - Resume hydrochlorothiazide at discharge - Recommend follow-up with primary care provider within the next 2 weeks Patient seen by Ector Garrido PA-C, under the supervision of Dr. Thomas Patient Problems: Active and Suspected Problems Chest pain at rest (Acute) Hypokalemia (Acute) Elevated d-dimer (Acute) - Physical Exam Vitals/I&O's: Vital Signs Temp Pulse Resp BP Pulse Ox 97.8 F 84 16 140/91 H 96 06/13/20 09:30 06/13/20 09:30 06/13/20 09:30 06/13/20 09:30 06/13/20 09:30 Oxygen Delivery Method Room Air Weight: 268 lb 8.368 oz Body Mass Index (BMI) 33.0 Intake and Output for Last 24 Hours 06/11/20 06/12/20 06/13/20 23:59 23:59 23:59 Intake Total 1010 / 1010 360 / 360 Balance 1010 / 1010 360 / 360 General: Alert, Oriented x3, Cooperative HEENT: Atraumatic, PERRLA, EOMI, Normocephalic Neck: Supple, No JVD, Negative Carotid Bruits Lungs: Clear to auscultation, Normal air movement Cardiovascular: Regular rate, No murmurs Abdomen: Bowel Sounds Present, Soft, Non Tender Extremities: No edema, Capillary Refill Less than 3 Seconds Skin: No rashes, No breakdown Musculoskeletal: No Tenderness to Palpation of Joints or Extremities Neurological: Cranial nerves II-XII grossly intact Psych/Mental Status: Normal Affect, Appropriate Current Medications Acetaminophen (Acetaminophen 325 Mg Tablet) 650 mg PO Q6H PRN PRN PRN Reason: Pain 1-10 or Fever Last Admin: 06/11/20 21:23 Dose: 650 mg Documented by: Hydralazine HCl (Hydralazine 20 Mg/Ml Vial) 5 mg IV Q6H PRN PRN PRN Reason: BLOOD PRESSURE Methadone HCl (Methadone Hcl 10 Mg/Ml Oral.Conc) 150 mg PO DAILY [facility] Last Admin: 06/13/20 10:50 Dose: Not Given Documented by: Morphine Sulfate (Morphine 2 Mg/Ml Syringe) 2 mg IV Q3H PRN PRN PRN Reason: PAIN 6-10 Nitroglycerin (Nitroglycerin Oint 1 Inch Packet) 1 inch TD Q6 [facility] Last Admin: 06/13/20 12:38 Dose: Not Given Documented by: Ondansetron HCl (Ondansetron 4 Mg/2 Ml Vial) 4 mg IV Q8H PRN PRN PRN Reason: NAUSEA/VOMITING Sodium Chloride (0.9% Saline Lock 10 Ml Syringe) 10 - 40 ml IV UD PRN PRN Reason: SALINE FLUSH Last Admin: 06/12/20 20:52 Dose: 10 ml Documented by: Discharge Activity: Return to Normal Activity Return to work on:: 06/14/20 Home Medications: Medications to take at Discharge Hydrochlorothiazide 12.5 mg PO DAILY 06/11/20 Methadone HCl [Methadose] 150 mg PO DAILY 06/11/20 Primary Care Physician: Care Physician,No Primary [NON-STAFF] - Patient Instructions: ED Chest Pain, Noncardiac, ED Pain, Acute, Uncertain Cause Disposition: Home Minutes spent on discharge:: 35 Patient Condition:: Good Medical Necessity - Tobacco Use Smoking Status: Former smoker Tobacco Use: Non-smoker, Vapor Meaningful Use Info Meaningful Use Diagnoses (Choose all that apply): None applicable <WilliamRamona Aydee - Last Filed: 06/13/20 15:22> Discharge Date and Diagnosis - Primary Discharge Diagnosis Acute Problems: Active Problems Chest pain at rest (Acute) Hypokalemia (Acute) Elevated d-dimer (Acute) Hospital Course and Treatment Summary of Care Provided: Patient seen by Ector Garrido PA-C under my supervision The patient is a 29 year old M with a past medical history of hypertension was admitted through the ED on 06/11/2020 with a complaint of chest pain which started while he was driving his car. Chest pain was stabbing and episodic as well as midsternal. He did have a previous history of chest pain but that subsequently resolved and was thought to be due to sleep apnea. Troponins x3 were negative and EKG showed no acute ST changes. TA of the chest done on account of elevated D-dimer was negative for PE. He had a stress test on 06/13/2020 which was negative for any evidence of ischemia. He remained stable and was discharged home on 06/13/2020. He is to continue taking his blood pressure medication namely hydrochlorothiazide. Of note, stay was also complicated by upper kalemia which resolved with replacement of potassium. He was discharged home on 06/13/2020 and is follow-up with his primary care doctor within 1 to 2 weeks. Patient seen and examined prior to discharge. He has no complaints. Review of systems otherwise negative. Labs and vitals reviewed. Home medication reviewed and reconciled. O/E: Vital Signs Temp Pulse Resp BP Pulse Ox 97.8 F 84 16 140/91 H 96 06/13/20 09:30 06/13/20 09:30 06/13/20 09:30 06/13/20 09:30 06/13/20 09:30 General: Alert, Oriented x3, Cooperative HEENT: Atraumatic, PERRLA, EOMI, Normocephalic Neck: Supple, No JVD, Negative Carotid Bruits Lungs: Clear to auscultation, Normal air movement Cardiovascular: Regular rate, No murmurs Abdomen: Bowel Sounds Present, Soft, Non Tender Extremities: No edema, Capillary Refill Less than 3 Seconds Skin: No rashes, No breakdown Musculoskeletal: No Tenderness to Palpation of Joints or Extremities Neurological: Cranial nerves II-XII grossly intact Psych/Mental Status: Normal Affect, Appropriate Plan is for discharge home today. Rest as per Ector Garrido PA-C's note, which I have reviewed and endorsed. - Physical Exam Vitals/I&O's: Vital Signs Temp Pulse Resp BP Pulse Ox 97.8 F 84 16 140/91 H 96 06/13/20 09:30 06/13/20 09:30 06/13/20 09:30 06/13/20 09:30 06/13/20 09:30 Oxygen Delivery Method Room Air Weight: 268 lb 8.368 oz Body Mass Index (BMI) 33.0 Intake and Output for Last 24 Hours 06/11/20 06/12/20 06/13/20 23:59 23:59 23:59 Intake Total 1010 / 1010 840 / 840 Balance 1010 / 1010 840 / 840 Discharge Diet: Low fat/ Low Cholesterol Please Follow Up With: Ras Mclean NP, RADIO BOARD OPERATOR ANNOUNCER-C When: 1-2 weeks OBSV E&M: 90770 Observation care discharge
== END 2020-06-13 09:42 | disposition home or self-care (01) ==
LOC: ED 13:54 → PCU 16:25
PROVIDERS: Admitting Provider Internal Medicine; Emergency Provider Emergency Medicine; PCP Nurse Practitioner Family; Visit Provider Student in an Organized Health Care Education/Training Program
DX: R07.89 Other chest pain (principal); I10 Essential (primary) hypertension; E87.6 Hypokalemia; R79.89 Other specified abnormal findings of blood chemistry; G47.33 Obstructive sleep apnea (adult) (pediatric); F17.290 Nicotine dependence, other tobacco product, uncomplicated; Z79.899 Other long term (current) drug therapy; Z79.891 Long term (current) use of opiate analgesic
CPT/HCPCS: 36415; 71045; 71275; 80048; 80053; 83735; 84484; 85025; 85379; 93005; 93017; 93350; 96360; 96361; 99218; 99251; 99285; 99406; J7030; Q9957; Q9967; A4216; C8928; G0378; G0463